=== PATIENT | female | born 1980 | race American Indian/Alaskan Native ===

== ENCOUNTER 2016-12-04 17:08 | Emergency (ER) | payer MEDICAID, OTHER ==
[2016-12-04 17:17] VITALS: RESP 18; BMI 30.7
[2016-12-04] MEDS ORDERED: Levalbuterol 1.25 MG/3 ML Inhal Soln UD IH STA (17:46)
[2016-12-04] MEDS ORDERED: guaiFENesin 200 mg/10 ml Syrup UD PO STA (17:47)
[2016-12-04] MEDS ORDERED: Ipratropium 0.02% Inhal Soln (0.5 mg/2.5 ml) UD IH STA (17:47)
--- NOTE | 2016-12-04 18:33 | ED PDOC ---
Arrival/HPI - History of Present Illness Time/Duration: Prior to Arrival, > week Symptom Onset: Gradual Symptom Course: Unchanged Severity Level: Mild <Gilberto Rothman - Last Filed: 12/04/16 21:33> <Fadi Zaragoza - Last Filed: 12/04/16 21:35> - General Chief Complaint: Cough, Cold, Congestion Time Seen by Provider: 12/04/16 17:10 - History of Present Illness Narrative History of Present Illness (Text): 12/04/16 18:33 This is a 36 year old female with PMH notable for asthma and fibromyalgia presenting to the ED for evaluation of SOB x 1 week. The patient notes intermitted dry cough non-productive of sputum. The patient reports an upper respiratory viral illness 2 weeks ago. Patient presently denies fever, chills, chest pain, abdominal pain, nausea, changes in bowel/bladder, and extremity paresthesias. (Gilberto Rothman) Past Medical History - Provider Review Nursing Documentation Reviewed: Yes - Travel History Have you recently traveled outside [place] w/in the past 3 mons?: No - Past History Past History: Non-Contributing - Infectious Disease Hx of Infectious Diseases: None - Tetanus Immunization Tetanus Immunization: Unknown - Reproductive Menopause: No - Pulmonary Hx Asthma: Yes - Neurological Hx Headaches: Yes - Psychiatric Hx Substance Use: No Other/Comment: sleep disoder - Past Surgical History Past Surgical History: Non-Contributing - Surgical History Other/Comment: abd surgery, benigh tumor - Anesthesia Hx Anesthesia: Yes Hx Anesthesia Reactions: No Hx Malignant Hyperthermia: No - Suicidal Assessment Feels Threatened In Home Enviroment: No <Gilberto Rothman - Last Filed: 12/04/16 21:33> Family/Social History - Physician Review Nursing Documentation Reviewed: Yes Family/Social History: No Known Family HX Smoking Status: Unknown If Ever Smoked Hx Alcohol Use: No Hx Substance Use: No Hx Substance Use Treatment: No <Gilberto Rothman - Last Filed: 12/04/16 21:33> Allergies/Home Meds <Gilberto Rothman - Last Filed: 12/04/16 21:33> <Fadi Zaragoza - Last Filed: 12/04/16 21:35> Allergies/Adverse Reactions: Allergies iodine Allergy (Verified 12/04/16 17:25) SWELLING Home Medications: Home Meds Medication Instructions Recorded Confirmed Gabapentin [Neurontin] 600 mg PO TID 06/04/16 06/04/16 traZODone [trazodone Hydrochloride] 100 mg PO HS 06/04/16 06/04/16 Review of Systems - Physician Review All systems were reviewed & negative as marked: Yes - Review of Systems Constitutional: absent: Fatigue, Fevers Eyes: absent: Vision Changes, Photophobia ENT: absent: Hearing Changes, Tinnitus Respiratory: absent: SOB, Cough, Sputum, Wheezing Cardiovascular: absent: Chest Pain, Palpitations, Edema Gastrointestinal: absent: Abdominal Pain, Nausea, Vomiting Genitourinary Female: absent: Dysuria, Frequency Musculoskeletal: Back Pain. absent: Arthralgias Skin: absent: Rash, Pruritis Neurological: Headache. absent: Dizziness Endocrine: absent: Diaphoresis Hemo/Lymphatic: absent: Adenopathy Psychiatric: absent: Anxiety <Gilberto Rothman - Last Filed: 12/04/16 21:33> Physical Exam Vital Signs Reviewed: Yes Temperature: Afebrile Blood Pressure: Normal Pulse: Regular Respiratory Rate: Normal Appearance: Positive for: Well-Appearing, Non-Toxic, Comfortable Pain Distress: None Mental Status: Positive for: Alert and Oriented X 3 - Systems Exam Head: Present: Atraumatic, Normocephalic Pupils: Present: PERRL Extroacular Muscles: Present: EOMI Conjunctiva: Present: Normal Mouth: Present: Moist Mucous Membranes Neck: Present: Normal Range of Motion. No: Lymphadenopathy Respiratory/Chest: Present: Clear to Auscultation. No: Good Air Exchange ( decreased air entry b/l), Respiratory Distress, Accessory Muscle Use Cardiovascular: Present: Regular Rate and Rhythm, Normal S1, S2. No: Murmurs Abdomen: Present: Normal Bowel Sounds. No: Tenderness, Distention, Peritoneal Signs Back: Present: Normal Inspection. No: Midline Tenderness Upper Extremity: Present: Normal Inspection. No: Cyanosis, Edema Lower Extremity: Present: Normal Inspection. No: Edema Neurological: Present: GCS=15, CN II-XII Intact, Speech Normal Skin: Present: Warm, Dry, Normal Color. No: Rashes Lymphatic: No: Cervical Adenopathy Psychiatric: Present: Alert, Oriented x 3 <Gilberto Rothman - Last Filed: 12/04/16 21:33> Vital Signs Temp Pulse Resp BP Pulse Ox 12/04/16 18:46 65 18 136/99 H 97 12/04/16 17:16 98.2 F 68 18 123/80 97 Medical Decision Making - Lab Interpretations I have reviewed the lab results: Yes Interpretation: No clinic. lab abnormalty - RAD Interpretation Cloth Colors Examiner: ED Physician - EKG Interpretation Interpreted by ED Physician: Yes Type: 12 lead EKG <Gilberto Rothman - Last Filed: 12/04/16 21:33> - Lab Interpretations I have reviewed the lab results: Yes <Fadi Zaragoza - Last Filed: 12/04/16 21:35> ED Course and Treatment: 12/04/16 18:40 Impression: This is a 36 year old female with PMH notable for asthma and fibromyalgia presenting to the ED for evaluation of SOB x 1 week. The patient appears clinically stable. She is able to speak in complete sentences, saturation is > 97% on room air. Differential: Anxiety Pneumonia URI Plan: CXR Xopenex Robitussin Ipratropium EKG Prior Visits: Progress Note: Patient seen and examined at the bedside. No acute distress. Patient appears clinically well. Patient has complaint of SOB. Patient is able to speak in full sentences without issue, no use of accessory muscles, sating >97% on room air. Patient is pending lab work and CXR. On re-examination, the patient is resting comfortably in the bed with her coat over her face. The patient was woken up and informed of the treatment plan. She is agreeable with the plan thus far. 12/04/16 21:34 Patient re-evaluated. Improvement in symptoms. Discharge plan discussed with the patient in detail. She is agreeable with the discharge plan. The patient is medically stable for discharge home. (Gilberto Rothman) Patient seen and examined with resident. Came up with treatment and disposition plan with resident. The patient is a 36 year old female who in into the emergency department for evaluation of shortness of breath. Additional HPI details as noted by the resident. On physical examination the patient has decrease air entry bilaterally. 12/04/16 21:25 Patient with moderate improvement after neb; CXR is unremarkable as are labs, including d-dimer. Will d/c on prednisone, albuterol, and z-pack. (Fadi Zaragoza) - Lab Interpretations Lab Results: 12/04/16 19:55 12/04/16 19:55 Lab Results 12/04/16 19:55: WBC 4.9 D, RBC 5.15, Hgb 11.7 L, Hct 36.0, MCV 69.9 L, MCH 22.7 L, MCHC 32.5, RDW 15.9 H, Plt Count 183, MPV 9.9, Gran % 59.9, Lymph % ( Auto) 33.6, Delta % (Auto) 5.5, Eos % (Auto) 0.8 L, Baso % (Auto) 0.2, Gran # 2.92, Lymph # 1.6, Delta # 0.3, Eos # 0.0, Baso # 0.01, D-Dimer, Quantitative 0.44, Sodium 139, Potassium 3.6, Chloride 100, Carbon Dioxide 25, Anion Gap 18, BUN 11, Creatinine 0.8, Est GFR ( Amer) > 60, Est GFR (Non-Af Amer) > 60 , Random Glucose 85, Calcium 9.2, Total Bilirubin 0.5, AST 21, ALT 16, Alkaline Phosphatase 64, Total Protein 7.9, Albumin 4.1, Globulin 3.7, Albumin/Globulin Ratio 1.1 - RAD Interpretation Radiology Orders: 12/04/16 18:16 CHEST PORTABLE [RAD] Stat - EKG Interpretation EKG Interpretation (Text): 12/04/16 18:46 NSR, no ST or T wave changes, normal intervals (Gilberto Rothman) - Medication Orders Current Medication Orders: Discontinued Medications Guaifenesin (Robitussin) 400 mg PO ONCE STA Stop: 12/04/16 17:48 Last Admin: 12/04/16 18:20 Dose: 400 MG Ipratropium [place] (Atrovent) 0.5 mg IH STAT STA Stop: 12/04/16 17:48 Last Admin: 12/04/16 18:00 Dose: 0.5 MG Levalbuterol HCl (Xopenex) 1.25 mg IH STAT STA Stop: 12/04/16 17:47 Last Admin: 12/04/16 18:30 Dose: 1.25 MG Prednisone (Prednisone Tab) 40 mg PO STAT STA Stop: 12/04/16 21:26 <Gilberto Rothman - Last Filed: 12/04/16 21:33> - PA / GEAR HOBBER OPERATOR / Resident Statement / has reviewed & agrees with the documentation as recorded. MD/ has examined the patient and agrees with the treatment plan. - Scribe Statement The provider has reviewed the documentation as recorded by the Scribe <Fadi Zaragoza - Last Filed: 12/04/16 21:35> - Scribe Statement Joshua Petersen Provider Scribe Attestation: All medical record entries made by the Scribe were at my direction and personally dictated by me. I have reviewed the chart and agree that the record accurately reflects my personal performance of the history, physical exam, medical decision making, and the department course for this patient. I have also personally directed, reviewed, and agree with the discharge instructions and disposition. (Fadi Zaragoza) Disposition/Present on Arrival - Present on Arrival Any Indicators Present on Arrival: No History of DVT/PE: No History of Uncontrolled Diabetes: No Urinary Catheter: No History of Decub. Ulcer: No History Surgical Site Infection Following: None - Disposition Have Diagnosis and Disposition been Completed?: Yes Patient Plan: Discharge <Gilberto Rothman - Last Filed: 12/04/16 21:33> - Present on Arrival Any Indicators Present on Arrival: No - Disposition Have Diagnosis and Disposition been Completed?: Yes Disposition Time: 21:30 Patient Plan: Discharge <Fadi Zaragoza - Last Filed: 12/04/16 21:35> - Disposition Diagnosis: Dyspnea Patient Problems: Current Active Problems Problem Status Diagnosed Dyspnea Acute Condition: GOOD Discharge Instructions (ExitCare): Reactive Airways Disease (ED), Dyspnea (ED) Print Language: SYRIAC Additional Instructions: 1.) Follow up with PMD in 24-48 hours 2.) Maintain adequate hydration 3.) Take all medications in accordance with physician instructions 4.) Return to the emergency department if any new concerning symptoms. Prescriptions: Albuterol HFA [Ventolin HFA 90 mcg/actuation (8 g)] 2 puff IH Q4H #1 inhaler Azithromycin [Zithromax] 2 tab PO DAILY #6 tab predniSONE [Prednisone] 2 tab PO DAILY #6 tab Referrals: Rahel Milton MD [Primary Care Provider] - Follow up with primary
[2016-12-04 20:02] LABS: ADD MANUAL DIFF? NO
[2016-12-04 20:09] LABS: BASO # 0.01 K/mm3 (0.0-2.0); BASO % 0.2 % (0.0-3.0); EOS % 0.8 % (1.5-5.0); GRAN # 2.92 (1.4-6.5); GRAN % 59.9 % (50.0-68.0); LYMPH # 1.6 (1.2-3.4); LYMPH % 33.6 % (22.0-35.0); MEAN CELL VOLUME 69.9 fL (80.0-105.0); MEAN CORPUSCULAR HEMOGLOBIN 22.7 pg (25.0-35.0); MEAN CORPUSCULAR HGB CONC 32.5 g/dl (31.0-37.0); MEAN PLATELET VOLUME 9.9 fl (7.0-11.0); MONO # 0.3 (0.1-0.6); MONO % 5.5 % (1.0-6.0); PLATELET COUNT 183 10^3/uL (120.0-450.0); RED CELL DISTRIBUTION WIDTH 15.9 % (11.5-14.5); WHITE BLOOD COUNT 4.9 10^3/ul (4.5-11.0)
[2016-12-04 20:17] LABS: ALB/GLOB RATIO 1.1 (1.1-1.8); ALKALINE PHOSPHATASE 64 U/L (38-133); ALT/SGPT 16 U/L (7-56); AST/SGOT 21 U/L (15-39); BILIRUBIN,TOTAL 0.5 mg/dL (0.2-1.3); BLOOD UREA NITROGEN 11 mg/dL (7-21); CALCIUM 9.2 mg/dL (8.4-10.5); CARBON DIOXIDE 25 mmol/L (21-33); CHLORIDE 100 mmol/L (98-107); GFR AFRICAN-AMERICAN > 60; GLUCOSE,RANDOM 85 mg/dL (70-110); POTASSIUM 3.6 mmol/L (3.6-5.0); SODIUM 139 mmol/L (132-148); TOTAL PROTEIN 7.9 g/dL (5.8-8.3)
[2016-12-04 21:44] VITALS: BP 140/85; PULSE 70; TEMP 98.3; O2SAT 99
--- NOTE | 2016-12-05 08:46 | RAD ---
HISTORY: shortness of breath COMPARISON: 09/23/2012 FINDINGS: LUNGS: No active pulmonary disease. PLEURA: No significant pleural effusion identified, no pneumothorax apparent. CARDIOVASCULAR: Top-normal OSSEOUS STRUCTURES: No significant abnormalities. VISUALIZED UPPER ABDOMEN: Normal. OTHER FINDINGS: None. IMPRESSION: No active disease.
--- NOTE | 2016-12-05 09:06 | CARD ---
APPROVED REPORT EKG Measurement Heart [id number] <Conclusion> Normal sinus rhythm Minimal voltage criteria for LVH, may be normal variant Borderline ECG
== END 2016-12-04 21:45 | disposition home or self-care (01) ==
LOC: ED 17:08
DX: R06.00 Dyspnea, unspecified (principal)